=== PATIENT | male | born 1965 | race Two or more races ===

== ENCOUNTER 2018-04-21 18:04 | Inpatient (IN) | payer OTHER ==
[~2018-04-21] VITALS: Ht 185.4 cm; Wt 93.7 kg
[2018-04-21] MEDS ORDERED: PROPOFOL 10 MG/ML, 20ML ONE ×2 (18:13→18:24)
[2018-04-21] MEDS ORDERED: DILTIAZEM 5 MG/ML, 5ML ONE (18:27)
[2018-04-21] MEDS ORDERED: SODIUM CHLORIDE 0.9% 1,000ML IVBOLUS ONE (18:30)
[2018-04-21] MEDS ORDERED: PROPOFOL 10 MG/ML, 20ML IVPush ONE (18:30)
[2018-04-21] MEDS ORDERED: DILTIAZEM 5 MG/ML, 5ML IVPush ONE (18:30)
[2018-04-21] MEDS ORDERED: LORazepam 2 MG/ML, 1ML IVPush ONE (18:30)
[2018-04-21] MEDS ORDERED: THIAMINE 100 MG/ML, 2ML IM ONE (18:30)
[2018-04-21] MEDS ORDERED: SODIUM CHLORIDE FLUSH 10ML SYR IVF ONE (18:30)
[2018-04-21 18:41] LABS: BASOPHILS # (AUTO) 0.04 x10^3/uL (0-0.1); BASOPHILS % (AUTO) 1 % (0-1); EOSINOPHILS # (AUTO) 0.04 x10^3/uL (0-0.4); EOSINOPHILS % (AUTO) 1 % (1-7); LYMPHOCYTES # (AUTO) 0.93 x10^3/uL (1-3.4); LYMPHOCYTES % (AUTO) 11 % (22-44); MD NO; MEAN CORPUSCULAR HEMOGLOBIN 35.5 pg (27.5-34.5); MEAN CORPUSCULAR HGB CONC 34.4 g/dL (33.2-36.2); MEAN CORPUSCULAR VOLUME 103.1 fL (81-97); MEAN PLATELET VOLUME 6.7 fL (7.4-10.4); MONOCYTES # (AUTO) 0.59 x10^3/uL (0.2-0.8); MONOCYTES % (AUTO) 7 % (2-9); NEUTROPHILS # (AUTO) 6.57 x10^3/uL (1.8-6.8); NEUTROPHILS % (AUTO) 80 % (42-75); PLATELET COUNT 192 x10^3/uL (130-400); RED BLOOD COUNT 3.39 x10^6/uL (4.38-5.82); RED CELL DISTRIBUTION WIDTH 14.5 % (9.4-14.8)
[2018-04-21 18:49] LABS: INTERNATIONAL NORMALIZED RATIO 1.08 (0.93-1.1); PROTHROMBIN TIME 11.4 Seconds (9.6-11.5)
[2018-04-21 18:50] LABS: ALANINE AMINOTRANSFERASE 43 U/L (12-78); ALBUMIN 3.7 g/dL (3.4-5.0); ANION GAP 25 mmol/L (5-15); CALCIUM 8.2 mg/dL (8.5-10.1); CHLORIDE 105 mmol/L (98-107); CREATININE 1.46 mg/dL (0.7-1.3)
[2018-04-21] MEDS ORDERED: LISI2.5T PO (18:52)
[2018-04-21] MEDS ORDERED: SIMV5TAB5 PO (18:53)
[2018-04-21] MEDS ORDERED: LORazepam 2 MG/ML, 1ML ONE (18:59)
[2018-04-21] MEDS ORDERED: THIAMINE 100 MG/ML, 2ML ONE (18:59)
[2018-04-21 19:01] LABS: ALKALINE PHOSPHATASE 48 U/L (45-117); BILIRUBIN,TOTAL 0.2 mg/dL (0.2-1.0); T4 (THYROXINE) 3.8 mcg/dL (4.5-12.1); TOTAL PROTEIN 6.8 g/dL (6.4-8.2)
[2018-04-21] MEDS ORDERED: THIAMINE 200 MG in DEXTROSE 5% 50 ML IVPB ONE (20:00)
[2018-04-21] MEDS ORDERED: DOCUSATE 100 MG CAPSULE PO PRN (20:00)
[2018-04-21] MEDS ORDERED: ACETAMINOPHEN 325 MG TABLET PO PRN (20:00)
[2018-04-21] MEDS ORDERED: GUAIFENESIN/COD200MG-20MG/10ML LIQUID PO PRN (20:00)
[2018-04-21] MEDS ORDERED: DILTIAZEM 125 MG in SODIUM CHLORIDE 0.9% 100 ML IV PRN (20:00)
[2018-04-21] MEDS ORDERED: ONDANSETRON 2MG/ML, 2ML IVPush PRN (20:00)
[2018-04-21] MEDS ORDERED: HYDROcodone/APAP 5/325 TABLET PO PRN (20:00)
[2018-04-21] MEDS ORDERED: LORazepam 2 MG/ML, 1ML IV PRN ×3 (20:00)
[2018-04-21 20:18] LABS: HEMOGLOBIN A1C 5.2 % (4.2-6.3)
[2018-04-21 20:28] LABS: TROPONIN I < 0.015 ng/mL (0.000-0.045)
[2018-04-21 20:57] VITALS: BP 118/73
[2018-04-21] MEDS ORDERED: ENOXAPARIN 100 MG/ML SQ SCH (21:00)
[2018-04-21] MEDS ORDERED: POTASSIUM CHLORIDE 20 MEQ, MVI ADULT 10 ML, FOLIC ACID 1 MG, MAGNESIUM SULFATE 1 GM in ... IV SCH (21:00)
[2018-04-21] MEDS: SIMVASTATIN 5 MG TABLET PO SCH (21:18)
[2018-04-21] MEDS: LORazepam 2 MG/ML, 1ML IV PRN ×2 (21:29→23:29)
[2018-04-22] MEDS: LORazepam 2 MG/ML, 1ML IV PRN ×2 (01:36→05:33)
[2018-04-22 01:53] LABS: TROPONIN I 0.068 ng/mL (0.000-0.045)
[2018-04-22 03:38] VITALS: BP 117/68
[2018-04-22 04:35] LABS: BASOPHILS # (AUTO) 0.03 x10^3/uL (0-0.1); BASOPHILS % (AUTO) 1 % (0-1); EOSINOPHILS # (AUTO) 0.02 x10^3/uL (0-0.4); EOSINOPHILS % (AUTO) 1 % (1-7); LYMPHOCYTES # (AUTO) 0.68 x10^3/uL (1-3.4); LYMPHOCYTES % (AUTO) 13 % (22-44); MD NO; MEAN CORPUSCULAR HGB CONC 34.2 g/dL (33.2-36.2); MEAN CORPUSCULAR VOLUME 102.3 fL (81-97); MEAN PLATELET VOLUME 7.4 fL (7.4-10.4); MONOCYTES # (AUTO) 0.65 x10^3/uL (0.2-0.8); MONOCYTES % (AUTO) 13 % (2-9); NEUTROPHILS # (AUTO) 3.88 x10^3/uL (1.8-6.8); NEUTROPHILS % (AUTO) 74 % (42-75); PLATELET COUNT 154 x10^3/uL (130-400); RED CELL DISTRIBUTION WIDTH 14.4 % (9.4-14.8)
[2018-04-22 04:42] LABS: ANION GAP 11 mmol/L (5-15); CALCIUM 8.5 mg/dL (8.5-10.1); CHLORIDE 107 mmol/L (98-107); CHOLESTEROL, TOTAL 153 mg/dL (140-239); CREATININE 0.93 mg/dL (0.7-1.3); TRIGLYCERIDES 115 mg/dL (50-200); VLDL CHOLESTEROL 23 mg/dL (0-25)
[2018-04-22 04:46] LABS: HDL CHOL % 50 % (26-37); HDL CHOLESTEROL (DIRECT) 76 mg/dL (40-60); LDL CHOLESTEROL,CALCULATED 54 mg/dL (54-169); LDL/HDL RATIO 0.7 (0.5-3.0); TROPONIN I 0.087 ng/mL (0.000-0.045)
[2018-04-22] MEDS: ASPIRIN 325 MG TABLET EC PO SCH (07:32)
[2018-04-22] MEDS: METOPROLOL TARTRATE 25 MG TABLET PO SCH ×2 (07:32→17:46)
[2018-04-22] MEDS: MULTIVITAMINS/MINERALS TABLET PO SCH (07:32)
[2018-04-22 07:41] LABS: FREE T4 (FREE THYROXINE) 0.9 ng/dL (0.76-1.46)
[2018-04-22] MEDS ORDERED: CHLORDIAZEPOXIDE 25 MG CAPSULE PO SCH (10:00)
[2018-04-22] MEDS: LORazepam 2 MG/ML, 1ML IVPush PRN ×2 (10:19→12:31)
[2018-04-22] MEDS ORDERED: PHARMACY INSTRUCTION MC PRN ×4 (14:00)
[2018-04-22] MEDS ORDERED: PHENOBARBITAL SODIUM 800 MG in SODIUM CHLORIDE 0.9% 50 ML IVPB ONE (14:40)
[2018-04-22] MEDS: ENOXAPARIN 40 MG/0.4 ML SQ SCH (14:54)
[2018-04-22] MEDS: ZIPRASIDONE 20 MG INJ IM PRN ×2 (16:04→20:29)
[2018-04-22] MEDS ORDERED: SODIUM CHLORIDE 0.9% IV ONE (16:30)
[2018-04-22] MEDS ORDERED: PHENOBARBITAL SODIUM IV ONE (16:30)
[2018-04-22] MEDS: POTASSIUM CHLORIDE 20 MEQ, MAGNESIUM SULFATE 1 GM, MVI ADULT 10 ML, THIAMINE 200 MG, FO... IV SCH (16:34)
[2018-04-22] MEDS: DEXMEDETOMIDINE 200 MCG in SODIUM CHLORIDE 0.9% 48 ML IV PRN ×2 (20:50→23:16)
[2018-04-22] MEDS: SIMVASTATIN 5 MG TABLET PO SCH (21:00)
[2018-04-22] MEDS: PHENOBARBITAL SODIUM 130 MG/ML, 1ML IM SCH (23:11)
[2018-04-23] MEDS ORDERED: ZIPRASIDONE 20 MG INJ IM ONE (00:30)
[2018-04-23] MEDS: DEXMEDETOMIDINE 200 MCG in SODIUM CHLORIDE 0.9% 48 ML IV PRN ×3 (02:09→09:06)
[2018-04-23] MEDS: SODIUM CHLORIDE 0.9% 1,000 ML IV SCH ×3 (02:09→23:21)
[2018-04-23 05:15] LABS: ANION GAP 8 mmol/L (5-15); CALCIUM 8.3 mg/dL (8.5-10.1); CHLORIDE 109 mmol/L (98-107)
[2018-04-23 05:16] LABS: CREATININE 0.89 mg/dL (0.7-1.3)
[2018-04-23] MEDS: METOPROLOL TARTRATE 25 MG TABLET PO SCH ×2 (06:00→17:07)
[2018-04-23] MEDS: ASPIRIN 325 MG TABLET EC PO SCH (06:00)
[2018-04-23] MEDS: morphine SULFATE 10 MG/ML, 1ML IVPush PRN ×2 (07:23→09:06)
[2018-04-23] MEDS: LABETALOL 5MG/ML, 20ML IVPush PRN ×2 (07:24→15:59)
[2018-04-23] MEDS: MULTIVITAMINS/MINERALS TABLET PO SCH (07:57)
[2018-04-23] MEDS ORDERED: THIAMINE 100 MG in DEXTROSE 5% 50 ML IVPB SCH (09:00)
[2018-04-23] MEDS: PHENOBARBITAL SODIUM 130 MG/ML, 1ML IM SCH ×2 (11:17→23:30)
[2018-04-23] MEDS ORDERED: DEXMEDETOMIDINE 1,000 MCG in SODIUM CHLORIDE 0.9% 240 ML IV PRN (13:00)
[2018-04-23] MEDS: POTASSIUM CHLORIDE 20 MEQ, MAGNESIUM SULFATE 1 GM, MVI ADULT 10 ML, THIAMINE 200 MG, FO... IV SCH (14:37)
[2018-04-23] MEDS: ENOXAPARIN 40 MG/0.4 ML SQ SCH (14:37)
[2018-04-23] MEDS ORDERED: DEXMEDETOMIDINE 200 MCG in SODIUM CHLORIDE 0.9% 48 ML IV PRN (16:00)
[2018-04-23] MEDS: SIMVASTATIN 5 MG TABLET PO SCH (21:00)
[2018-04-24] MEDS: LABETALOL 5MG/ML, 20ML IVPush PRN (02:15)
[2018-04-24] MEDS: ASPIRIN 325 MG TABLET EC PO SCH (05:24)
[2018-04-24] MEDS: METOPROLOL TARTRATE 25 MG TABLET PO SCH ×2 (05:24→18:12)
[2018-04-24] MEDS: SODIUM CHLORIDE 0.9% 1,000 ML IV SCH ×2 (07:03→22:38)
[2018-04-24] MEDS: MULTIVITAMINS/MINERALS TABLET PO SCH (09:04)
[2018-04-24] MEDS ORDERED: PHENOBARBITAL SODIUM 130 MG/ML, 1ML IM SCH (12:00)
[2018-04-24] MEDS: PHENOBARBITAL SODIUM 130 MG/ML, 1ML IM SCH (12:54)
[2018-04-24] MEDS: ENOXAPARIN 40 MG/0.4 ML SQ SCH (14:06)
[2018-04-24] MEDS: POTASSIUM CHLORIDE 20 MEQ, MAGNESIUM SULFATE 1 GM, MVI ADULT 10 ML, THIAMINE 200 MG, FO... IV SCH (14:06)
[2018-04-24] MEDS: SIMVASTATIN 5 MG TABLET PO SCH (20:21)
[2018-04-24] MEDS: PHENOBARBITAL 20 MG/5 ML ORAL SOL PO SCH (22:36)
[2018-04-25 01:46] LABS: ALANINE AMINOTRANSFERASE 48 U/L (12-78); ALBUMIN 2.6 g/dL (3.4-5.0); ANION GAP 10 mmol/L (5-15); CALCIUM 7.8 mg/dL (8.5-10.1); CHLORIDE 107 mmol/L (98-107); CREATININE 0.73 mg/dL (0.7-1.3)
[2018-04-25 01:48] LABS: ALKALINE PHOSPHATASE 49 U/L (45-117); BILIRUBIN,TOTAL 0.8 mg/dL (0.2-1.0); TOTAL PROTEIN 6.2 g/dL (6.4-8.2)
[2018-04-25 01:52] LABS: MD YES; MEAN CORPUSCULAR HEMOGLOBIN 34.5 pg (27.5-34.5); MEAN CORPUSCULAR HGB CONC 33.8 g/dL (33.2-36.2); PLATELET COUNT 152 x10^3/uL (130-400); RED BLOOD COUNT 3.25 x10^6/uL (4.38-5.82); RED CELL DISTRIBUTION WIDTH 14.4 % (9.4-14.8)
[2018-04-25 01:55] LABS: <PLATELET ESTIMATE> ADEQUATE; <PLT MORPHOLOGY> NORMAL PLT MORPH; <RBC MORPHOLOGY> NORMAL; BAND#(MANUAL) 0.19 x10^3/uL; BANDS%(MANUAL) 4 % (0-7); BASOS#(MANUAL) 0.05 x10^3/uL (0-0.1); BASOS% (MANUAL) 1 % (0-1); EOS#(MANUAL) 0.14 x10^3/uL (0.0-0.4); EOS% (MANUAL) 3 % (1-7); LYMPH#(MANUAL) 0.62 x10^3/uL (1-3.4); LYMPHS% (MANUAL) 13 % (22-44); MONOS#(MANUAL) 0.29 x10^3/uL (0.3-2.7); MONOS% (MANUAL) 6 % (2-9); SEGS% (MANUAL) 73 % (42-75)
[2018-04-25] MEDS ORDERED: CEFTRIAXONE PMX 1GM/50ML 50 ML IV SCH (02:30)
[2018-04-25] MEDS ORDERED: DOXYCYCLINE 100 MG in DEXTROSE 5% 250 ML IV SCH (02:30)
[2018-04-25] MEDS: ASPIRIN 325 MG TABLET EC PO SCH (05:47)
[2018-04-25] MEDS: METOPROLOL TARTRATE 25 MG TABLET PO SCH ×2 (05:47→18:24)
[2018-04-25] MEDS: MULTIVITAMINS/MINERALS TABLET PO SCH (09:00)
[2018-04-25] MEDS: PIPERACILLIN/TAZO/PMX 3.375GM 50 ML IV SCH ×3 (10:02→23:14)
[2018-04-25] MEDS: PHENOBARBITAL 20 MG/5 ML ORAL SOL PO SCH ×2 (11:31→23:14)
[2018-04-25] MEDS: ENOXAPARIN 40 MG/0.4 ML SQ SCH (14:53)
[2018-04-25] MEDS: POTASSIUM CHLORIDE 20 MEQ, MAGNESIUM SULFATE 1 GM, MVI ADULT 10 ML, THIAMINE 200 MG, FO... IV SCH (14:54)
[2018-04-25 18:18] VITALS: BP 150/92
[2018-04-25] MEDS: SIMVASTATIN 5 MG TABLET PO SCH (23:13)
[2018-04-26 02:00] VITALS: BP 144/90
[2018-04-26] MEDS: ASPIRIN 325 MG TABLET EC PO SCH (04:59)
[2018-04-26] MEDS: PIPERACILLIN/TAZO/PMX 3.375GM 50 ML IV SCH ×4 (04:59→22:31)
[2018-04-26] MEDS: METOPROLOL TARTRATE 25 MG TABLET PO SCH ×2 (05:00→17:25)
[2018-04-26 05:14] LABS: MEAN CORPUSCULAR HEMOGLOBIN 35.2 pg (27.5-34.5); MEAN CORPUSCULAR HGB CONC 34.5 g/dL (33.2-36.2); MEAN CORPUSCULAR VOLUME 102.1 fL (81-97); MEAN PLATELET VOLUME 7.8 fL (7.4-10.4); PLATELET COUNT 150 x10^3/uL (130-400); RED CELL DISTRIBUTION WIDTH 13.8 % (9.4-14.8)
[2018-04-26 05:28] LABS: CALCIUM 7.6 mg/dL (8.5-10.1); CHLORIDE 104 mmol/L (98-107)
[2018-04-26 05:34] LABS: ALANINE AMINOTRANSFERASE 61 U/L (12-78); ALBUMIN 2.5 g/dL (3.4-5.0); ALKALINE PHOSPHATASE 56 U/L (45-117); ANION GAP 9 mmol/L (5-15); BILIRUBIN,TOTAL 0.8 mg/dL (0.2-1.0); CREATININE 0.67 mg/dL (0.7-1.3)
[2018-04-26 05:46] LABS: BASOPHILS # (AUTO) 0.04 x10^3/uL (0-0.1); BASOPHILS % (AUTO) 1 % (0-1); EOSINOPHILS # (AUTO) 0.19 x10^3/uL (0-0.4); EOSINOPHILS % (AUTO) 3 % (1-7); LYMPHOCYTES % (AUTO) 9 % (22-44); MD SCAN; MONOCYTES # (AUTO) 0.71 x10^3/uL (0.2-0.8); MONOCYTES % (AUTO) 11 % (2-9); NEUTROPHILS # (AUTO) 4.88 x10^3/uL (1.8-6.8); NEUTROPHILS % (AUTO) 76 % (42-75)
[2018-04-26 07:38] VITALS: BP 140/77
[2018-04-26] MEDS: MULTIVITAMINS/MINERALS TABLET PO SCH (09:35)
[2018-04-26] MEDS: PHENOBARBITAL 20 MG/5 ML ORAL SOL PO SCH ×2 (11:47→22:31)
[2018-04-26] MEDS ORDERED: SODIUM PHOSPHATE 30 MMOL in SODIUM CHLORIDE 0.9% 500 ML IV ONE (12:00)
[2018-04-26] MEDS ORDERED: MAGNESIUM SULFATE PMX 4GM/100M 100 ML IV ONE (12:00)
[2018-04-26 13:15] VITALS: BP 137/86
[2018-04-26] MEDS: ENOXAPARIN 40 MG/0.4 ML SQ SCH (16:49)
[2018-04-26] MEDS: POTASSIUM CHLORIDE 20 MEQ, MAGNESIUM SULFATE 1 GM, MVI ADULT 10 ML, THIAMINE 200 MG, FO... IV SCH (18:33)
[2018-04-26 19:14] VITALS: BP_SYST 147; BP_SYST 148; BP_DIAS 88; BP_DIAS 99
[2018-04-26] MEDS: SIMVASTATIN 5 MG TABLET PO SCH (22:31)
[2018-04-27 01:38] VITALS: BP 152/84
[2018-04-27 05:20] LABS: ALANINE AMINOTRANSFERASE 67 U/L (12-78); ALBUMIN 2.4 g/dL (3.4-5.0); ANION GAP 10 mmol/L (5-15); CALCIUM 7.6 mg/dL (8.5-10.1); CHLORIDE 106 mmol/L (98-107); CREATININE 0.69 mg/dL (0.7-1.3)
[2018-04-27 05:22] LABS: ALKALINE PHOSPHATASE 57 U/L (45-117); BILIRUBIN,TOTAL 0.4 mg/dL (0.2-1.0); TOTAL PROTEIN 5.9 g/dL (6.4-8.2)
[2018-04-27] MEDS: METOPROLOL TARTRATE 25 MG TABLET PO SCH ×2 (05:35→18:13)
[2018-04-27] MEDS: PIPERACILLIN/TAZO/PMX 3.375GM 50 ML IV SCH ×4 (05:35→23:03)
[2018-04-27] MEDS: ASPIRIN 325 MG TABLET EC PO SCH (05:35)
[2018-04-27 05:55] LABS: BASOPHILS # (AUTO) 0.02 x10^3/uL (0-0.1); BASOPHILS % (AUTO) 0 % (0-1); EOSINOPHILS # (AUTO) 0.17 x10^3/uL (0-0.4); EOSINOPHILS % (AUTO) 3 % (1-7); LYMPHOCYTES # (AUTO) 0.61 x10^3/uL (1-3.4); LYMPHOCYTES % (AUTO) 12 % (22-44); MD NO; MEAN CORPUSCULAR HEMOGLOBIN 35.3 pg (27.5-34.5); MEAN CORPUSCULAR HGB CONC 34.6 g/dL (33.2-36.2); MEAN PLATELET VOLUME 8.3 fL (7.4-10.4); MONOCYTES # (AUTO) 0.87 x10^3/uL (0.2-0.8); MONOCYTES % (AUTO) 17 % (2-9); NEUTROPHILS # (AUTO) 3.44 x10^3/uL (1.8-6.8); NEUTROPHILS % (AUTO) 68 % (42-75); PLATELET COUNT 163 x10^3/uL (130-400); RED BLOOD COUNT 2.96 x10^6/uL (4.38-5.82); RED CELL DISTRIBUTION WIDTH 14.6 % (9.4-14.8)
[2018-04-27 07:15] VITALS: BP 131/81
[2018-04-27] MEDS ORDERED: POTASSIUM CHLORIDE 20 MEQ TAB.ER.PRT PO ONE (07:30)
[2018-04-27] MEDS: MULTIVITAMINS/MINERALS TABLET PO SCH (09:00)
[2018-04-27] MEDS: PHENOBARBITAL 20 MG/5 ML ORAL SOL PO SCH ×2 (11:00→23:03)
[2018-04-27 14:00] VITALS: BP 155/92
[2018-04-27] MEDS: ENOXAPARIN 40 MG/0.4 ML SQ SCH (18:13)
[2018-04-27] MEDS: POTASSIUM CHLORIDE 20 MEQ, MAGNESIUM SULFATE 1 GM, MVI ADULT 10 ML, THIAMINE 200 MG, FO... IV SCH (19:18)
[2018-04-27 19:51] VITALS: BP 149/76
[2018-04-27] MEDS: SIMVASTATIN 5 MG TABLET PO SCH (20:18)
[2018-04-28 03:27] VITALS: BP 151/86
[2018-04-28] MEDS: PIPERACILLIN/TAZO/PMX 3.375GM 50 ML IV SCH ×2 (05:07→12:19)
[2018-04-28] MEDS: ASPIRIN 325 MG TABLET EC PO SCH (05:07)
[2018-04-28] MEDS: METOPROLOL TARTRATE 25 MG TABLET PO SCH (05:08)
[2018-04-28 05:56] LABS: ALBUMIN 2.6 g/dL (3.4-5.0); ANION GAP 10 mmol/L (5-15); CALCIUM 8.7 mg/dL (8.5-10.1); CHLORIDE 105 mmol/L (98-107)
[2018-04-28 06:00] LABS: ALANINE AMINOTRANSFERASE 81 U/L (12-78); ALKALINE PHOSPHATASE 72 U/L (45-117); BILIRUBIN,TOTAL 0.6 mg/dL (0.2-1.0); CREATININE 0.85 mg/dL (0.7-1.3); TOTAL PROTEIN 6.6 g/dL (6.4-8.2)
[2018-04-28 06:11] LABS: BASOPHILS # (AUTO) 0.04 x10^3/uL (0-0.1); BASOPHILS % (AUTO) 1 % (0-1); EOSINOPHILS # (AUTO) 0.13 x10^3/uL (0-0.4); EOSINOPHILS % (AUTO) 2 % (1-7); LYMPHOCYTES # (AUTO) 0.82 x10^3/uL (1-3.4); LYMPHOCYTES % (AUTO) 14 % (22-44); MD NO; MEAN CORPUSCULAR HEMOGLOBIN 33.9 pg (27.5-34.5); MEAN CORPUSCULAR HGB CONC 33.6 g/dL (33.2-36.2); MEAN CORPUSCULAR VOLUME 100.8 fL (81-97); MEAN PLATELET VOLUME 8.5 fL (7.4-10.4); MONOCYTES # (AUTO) 0.96 x10^3/uL (0.2-0.8); MONOCYTES % (AUTO) 16 % (2-9); NEUTROPHILS # (AUTO) 4.15 x10^3/uL (1.8-6.8); NEUTROPHILS % (AUTO) 68 % (42-75); PLATELET COUNT 227 x10^3/uL (130-400); RED BLOOD COUNT 3.25 x10^6/uL (4.38-5.82); RED CELL DISTRIBUTION WIDTH 13.9 % (9.4-14.8)
[2018-04-28] MEDS ORDERED: POTASSIUM CHLORIDE 20 MEQ TAB.ER.PRT PO ONE (06:30)
[2018-04-28 06:55] VITALS: BP 145/77
[2018-04-28] MEDS: PHENOBARBITAL 20 MG/5 ML ORAL SOL PO SCH (12:18)
[2018-04-28] MEDS: MULTIVITAMINS/MINERALS TABLET PO SCH (12:19)
[2018-04-28] MEDS ORDERED: ASPI-650 PO (13:09)
[2018-04-28] MEDS ORDERED: AMOX1TAB64 PO (13:09)
[2018-04-28] MEDS ORDERED: THIA100T67 PO (13:09)
[2018-04-28] MEDS ORDERED: METO25TA35 PO (13:09)
== END 2018-04-28 14:48 | disposition home or self-care (01) | DRG 177 ==
LOC: ED 20:02 → EDIP 20:04 → CCU 20:28 → 3NE 04-25 18:03 → DCLOUNGE 04-28 14:30
PROVIDERS: ADMIT Internal Medicine; ATTEND Internal Medicine
PROC: 5A2204Z Restoration of Cardiac Rhythm, Single (ICD-10-PCS; principal; 2018-04-21)
DX: J69.0 Pneumonitis due to inhalation of food and vomit (principal); J96.00 Acute respiratory failure, unspecified whether with hypoxia or hypercapnia; F10.231 Alcohol dependence with withdrawal delirium; D53.9 Nutritional anemia, unspecified; E78.5 Hyperlipidemia, unspecified; E86.0 Dehydration; G40.909 Epilepsy, unspecified, not intractable, without status epilepticus; Y90.1 Blood alcohol level of 20-39 mg/100 ml; I10 Essential (primary) hypertension; I48.91 Unspecified atrial fibrillation; Z83.3 Family history of diabetes mellitus; Z79.82 Long term (current) use of aspirin; Z88.2 Allergy status to sulfonamides
CPT/HCPCS: 36415; 36600; 70450; 71045; 80048; 80053; 80061; 80307; 82436; 82570; 82607; 82803; 83036; 83735; 83935; 84100; 84133; 84156; 84300; 84436; 84439; 84443; 84481; 84484; 85025; 85610; 85730; 87040; 87081; 87205; 92960; 93005; 93306; 96361; 96372; 96374; G0378; J0696; J1650; J2543; J2560; J2704; J3411; J3475; J3480; J3486; J7060; J2060; J2270; J7030; J7040; J7050